=== PATIENT | male | born 1995 | race Caucasian/White ===

== ENCOUNTER 2018-06-18 10:15 | Day surgery (SDC) | payer OTHER ==
--- NOTE | 2018-06-18 10:45 | ANESTHESIA ---
Pre-Anesthesia VS, & Labs - Diagnosis R thumb fracture s/p repair - Procedure R thumb hardware removal Height 6 ft 1 in Weight (kg) 78.7 kg - NPO >8 hours Home Medications and Allergies Home Medications: Ambulatory Orders No Known Home Medications 06/17/18 No Known Home Medications 06/17/18 Allergies/Adverse Reactions: Allergies Allergy/AdvReac Type Severity Reaction Status Date / Time No Known Drug Allergies Allergy Verified 06/17/18 14:50 Anes History & Medical History - Medical History Cardiovascular: reports: None Pulmonary: reports: None Gastrointestinal: reports: None Urinary: reports: None Musculoskeletal: reports: Other (R thumb pinning) Endocrine/Autoimmune: reports: None Psychosocial: reports: Other (ADD ADHD) - Surgical History Orthopedic: Other Exam General: Alert, Oriented x3 Dental: WNL, Loose/Frag (chipped tooth at back lower R molar per pt) Mouth Openin Fingerbreadth Neck Mobility: Normal Mallampati classification: I Thyromental Distance: greater than 6 cm Respiratory: Lungs clear, Normal breath sounds Cardiovascular: Regular rate Neurological: Normal speech Mental/Cognitive Status: Alert/Oriented X3, Normal for patient Plan Anesthesia Type: General Consent for Procedure(s) Verified and Reviewed: Yes Code Status: Attempt Resuscitation ASA classification: 1-Healthy patient Is this case an emergency?: No
[2018-06-18] MEDS ORDERED: LACTATED RINGERS 1,000 ML IV ONE ×2 (10:55→13:41)
[2018-06-18] MEDS ORDERED: ceFAZolin 2 GM/50 ML 2 GM/50 ML BAG IV ONE (11:02)
[2018-06-18] MEDS ORDERED: WATER FOR INJECTION,STERILE 30 ML ONE (12:34)
[2018-06-18] MEDS ORDERED: BUPIVACAINE 0.25% PF 10 ML VIAL ONE (12:35)
[2018-06-18] MEDS ORDERED: BUPIVACAINE 0.25% PF 30 ML VIAL SUBQ ONE ×2 (12:43)
[2018-06-18] MEDS ORDERED: DEXAMETHASONE 4 MG/ML VIAL IVP ONE (12:48)
[2018-06-18] MEDS ORDERED: LIDOCAINE-MPF 2% 5 ML VIAL IM ONE (12:48)
[2018-06-18] MEDS ORDERED: MIDAZOLAM 2 MG/2 ML VIAL IVP ONE (12:48)
[2018-06-18] MEDS ORDERED: fentaNYL 100 MCG/2 ML VIAL IVP ONE (12:48)
[2018-06-18] MEDS ORDERED: PROPOFOL 200 MG/20 ML VIAL IVP ONE (12:48)
[2018-06-18] MEDS ORDERED: NALOXONE 0.4 MG/ML VIAL IVP ONE (12:48)
[2018-06-18] MEDS ORDERED: ONDANSETRON 4 MG/2 ML VIAL IVP ONE (12:48)
[2018-06-18] MEDS ORDERED: ACETAMINOPHEN 1,000 MG/100 ML 100 ML IV ONE (12:48)
[2018-06-18] MEDS ORDERED: oxyCODONE 5 MG TABLET PO PRN (13:38)
[2018-06-18] MEDS ORDERED: ONDANSETRON 4 MG/2 ML VIAL IVP PRN (13:38)
--- NOTE | 2018-06-18 13:41 | OPERATIVE REPORT ---
Operative Report - General Procedure Date: 06/18/18 Planned Procedure: Right thumb implant removal and extensor tendon tenolysis Pre-Op Diagnosis: Right thumb symptomatic implants and stiffness Procedure Performed: Right thumb implant removal Right thumb extensor tendon tenolysis Post Op Diagnosis: Same - Procedure Note Primary Surgeon: Maurilio Poole Estimated Blood Loss (mL): 1 Complications: None - Other Other Information/Narrative: Postoperative Protocol: Move thumb as much as possible. Dressing off in 5 days. No firm gripping or lifting for 2 weeks. Indication For Surgery: 22M who underwent ORIF of the right thumb P1 fracture on 08 October 2017. He has had an excellent recovery without significant complication. His motion improved with occupational therapy. He continues to have pain dorsally at the IP joint when he fully flexes and the implants were tender to the touch. He additionally had some stiffness and lacked some flexion. The risks, benefits, and alternatives were discussed. Risks include pain, bleeding, infection, damage to nearby structures, numbness, retained implants, stiffness, lack of symptom relief, need for further surgery, DVT, PE, stroke, and . Written consent was obtained. The patient was met in the preoperative holding on the day of the procedure. Operative extremity was signed. Consent was verified. They desire to proceed. They were brought to the operating room and surrendered to anesthesia. Once general anesthesia was obtained he was placed into the supine position. A well- padded forearm tourniquet was applied. They were prepped and draped in the standard fashion. A surgical timeout was held will be confirmed the patient procedure, identity, allergies, antibiotics, images laterality, and finger. All were in agreement we proceeded. A tourniquet was used to exsanguinate the limb and the tourniquet was elevated to 250mm Hg. Total tourniquet time was 54 minutes. The central portion of the prior incision was used and sharp dissection was brought down to the extensor tendon and it was released sharply from the surrounding tissues. The dissection was brought back to the extensor dexter over the MCP and this was left intact on both sides. I was able to see the plate on the ulnar aspect of the bone and I did not need to split the tendon again. I freed the scar tissue off the plate ulnarly and removed the proximal plate screws. I then freed the radial aspect of the tendon distally and removed the distal screws. I then removed the lag screws that were outside the plate. I then used sharp dissection to free the tendon from all scar tissue deep and superficial. Xrays were taken to confirm that all implants had been removed. Range of motion of the IP joint was 15 degrees of hyperextension to 70 degrees of flexion. The wound was irrigated copiously and closed with horizontal mattress sutures. A sterile dressing was applied. He was transferred to the recovery room in good condition.
[2018-06-18 16:05] VITALS: BP 112/72
== END 2018-06-18 10:16 | disposition home or self-care (01) ==
LOC: SDS 10:15
PROVIDERS: ATTEND Orthopaedic Surgery
PROC: 0LN70ZZ Release Right Hand Tendon, Open Approach (ICD-10-PCS; 2018-06-18)
PROC: 0RPW0JZ Removal of Synthetic Substitute from Right Finger Phalangeal Joint, Open Approach (ICD-10-PCS; principal; 2018-06-18 11:30)
DX: T84.84XA Pain due to internal orthopedic prosthetic devices, implants and grafts, initial encounter (principal)
CPT/HCPCS: 26320; 26445; A9270; J0131; J0690; J7120

== ENCOUNTER 2019-02-10 18:55 | Emergency (ER) | payer OTHER ==
[2019-02-10 19:01] VITALS: BP 122/72
--- NOTE | 2019-02-10 19:24 | ED Physician Documentation ---
PD HPI UPPER EXT INJURY - Stated complaint Stated Complaint: L WRIST INJ - Chief complaint Chief Complaint: Trauma Ext - History obtained from History obtained from: Patient - History of Present Illness Location: Left (23-year-old gentleman, active duty in the [employer]. He fell on outstretched wrist while playing flag football tonight and has mild pain of the distal radius on the left. No other injuries.) Review of Systems Constitutional: reports: Reviewed and negative Cardiac: reports: Reviewed and negative Respiratory: reports: Reviewed and negative PD PAST MEDICAL HISTORY - Past Medical History Cardiovascular: None Respiratory: None Endocrine/Autoimmune: None GI: None : None HEENT: None Psych: ADD/ADHD Musculoskeletal: Other - Past Surgical History Ortho: Other - Present Medications Home Medications: Ambulatory Orders Medication Instructions Recorded Confirmed No Known Home Medications 06/17/18 06/17/18 - Allergies Allergies/Adverse Reactions: Allergies Allergy/AdvReac Type Severity Reaction Status Date / Time No Known Drug Allergies Allergy Verified 02/10/19 18:58 - Social History Does the pt smoke?: No Smoking Status: Never smoker Does the pt drink ETOH?: Yes Does the pt have substance abuse?: No - Immunizations Immunizations are current?: Yes PD ED PE NORMAL - Vitals Vital signs reviewed: Yes - General General: Alert and oriented X 3, No acute distress - Extremities Extremities: Other (Tenderness and swelling over the left distal radius dorsally, limited range of motion in flexion and extension due to pain. No snuffbox tenderness. Normal neurovascular function in the hand.) - Neuro Neuro: Alert and oriented X 3, Normal speech Results - Vitals Vitals: Vital Signs - 24 hr 02/10/19 18:58 Temperature 36.8 C Heart Rate 82 Respiratory 16 Rate Blood Pressure 122/72 O2 Saturation 98 Oxygen O2 Source Room air - Rads (name of study) 4 views of the left wrist Radiology: EMP read contemporaneously (Hairline fracture, nondisplaced through the left distal radius) Procedures - Splint (location) LUE Splint applied by: Tech Type of splint: Fiberglass, Short arm, Sugar tong Other: Patient tolerated well, No complications, Neurovascular intact Departure - Departure Disposition: 01 Home, Self Care Clinical Impression: Fracture of left distal radius Qualifiers: Encounter type: initial encounter Fracture type: closed Fracture morphology: other extra-articular Qualified Code(s): J11.546U - Other extraarticular fracture of lower end of left radius, initial encounter for closed fracture Condition: Good Record reviewed to determine appropriate education?: Yes Instructions: ED Fx Forearm Radius Ulna No Redu Requ Comments: Keep the splint on and dry, elevated. Tylenol or ibuprofen as needed for pain. Take the copy of the x-ray with you and [place] Forms: Activity restrictions
--- NOTE | 2019-02-10 19:40 | XRAY Report ---
Reason: wrist inj Procedure Date: 02/10/2019 Accession Number: [id number] / [id number] Procedure: XR - Wrist 4 View LT CPT Code: FULL RESULT: EXAM: LEFT WRIST RADIOGRAPHY EXAM DATE: 02/10/2019 07:22 PM. CLINICAL HISTORY: Left wrist pain. COMPARISON: None. TECHNIQUE: 4 views. FINDINGS: Bones: Impacted nondisplaced distal radial metaphyseal fracture. Remainder bones intact. Joints: Normal. No subluxations. Soft Tissues: Normal. No soft tissue swelling. IMPRESSION: Nondisplaced distal radial metaphyseal fracture. RADIA
== END 2019-02-10 19:42 | disposition home or self-care (01) ==
LOC: ED 18:55
DX: S52.552A Other extraarticular fracture of lower end of left radius, initial encounter for closed fracture (principal); W18.30XA Fall on same level, unspecified, initial encounter; Y93.62 Activity, american flag or touch football
CPT/HCPCS: 29125; 99282; 99283

== ENCOUNTER 2020-12-24 12:40 | Emergency (ER) | payer OTHER ==
--- NOTE | 2020-12-24 13:11 | ED Physician Documentation ---
PD HPI UPPER EXT INJURY - Stated complaint Stated Complaint: LEFT SHOULDER INJURY - Chief complaint Chief Complaint: Ext Problem - History obtained from History obtained from: Patient - Additonal information Additional information: Sliding into a base last night, arms over the head. He felt a pulling sensation now has moderate pain that is keeping him up at night across the posterior part of the superior left shoulder radiating to the neck and down to the bicep. He is right-handed. Pain is on the left. Review of Systems Constitutional: reports: Reviewed and negative Eyes: reports: Reviewed and negative Ears: reports: Reviewed and negative Nose: reports: Reviewed and negative PD PAST MEDICAL HISTORY - Past Medical History Cardiovascular: None Respiratory: None Endocrine/Autoimmune: None GI: None : None HEENT: None Psych: ADD/ADHD Musculoskeletal: Other - Past Surgical History Ortho: Other - Present Medications Home Medications: Ambulatory Orders Medication Instructions Recorded Confirmed HYDROcod/ACETAM 5/325 [Davin 5/325] 1 - 2 tab PO Q6H PRN #20 tablet 12/24/20 - Allergies Allergies/Adverse Reactions: Allergies Allergy/AdvReac Type Severity Reaction Status Date / Time No Known Drug Allergies Allergy Verified 12/24/20 12:50 - Social History Does the pt smoke?: No Smoking Status: Never smoker Does the pt drink ETOH?: Yes Does the pt have substance abuse?: No - Immunizations Immunizations are current?: Yes PD ED PE NORMAL - Vitals Vital signs reviewed: Yes - General General: Alert and oriented X 3, No acute distress - Neck Neck: Supple, no meningeal sign, No bony TTP - Extremities Extremities: Other (No specific tenderness about the left shoulder, no deformity. He is unable to abduct more than about 15 degrees due to pain. Painless external rotation but internal rotation is painful.) - Neuro Neuro: Alert and oriented X 3, Normal speech Results - Vitals Vitals: Vital Signs - 24 hr 12/24/20 12/24/20 12:46 14:44 Temperature 36.4 C L 36.9 C Heart Rate 78 77 Respiratory 15 16 Rate Blood Pressure 132/80 H 148/79 H O2 Saturation 100 99 Oxygen O2 Source Room air - Rads (name of study) L shoulder XR Radiology: EMP read contemporaneously (nondisplaced chip frax humeral head) PD MEDICAL DECISION MAKING - ED course ED course: 25-year-old gentleman presents with a nondisplaced fracture of the humeral head. He is placed in a sling for comfort and given a copy of his x-rays to aid orthopedic follow-up. Departure - Departure Disposition: 01 Home, Self Care Clinical Impression: Fracture of humeral head, left, closed Qualifiers: Encounter type: initial encounter Qualified Code(s): S42.292A - Other displaced fracture of upper end of left humerus, initial encounter for closed fracture Condition: Good Record reviewed to determine appropriate education?: Yes Instructions: Humerus Fx Prescriptions: HYDROcod/ACETAM 5/325 [Davin 5/325] 1 - 2 tab PO Q6H PRN #20 tablet PRN Reason: Pain Comments: Prescription was sent electronically to [facility] in [place]. Keep the sling on and follow-up with one of the orthopedic surgeons on [facility], call the [facility] hospital tomorrow. Return for new or worsening symptoms. I am prescribing a short course of narcotic pain medication for you. These are potentially dangerous and addictive medications that should be used carefully. These medications may constipate you. Take an [id number] stool softener (docusate) twice daily with plenty of water while taking these medications. If you go 24 hours without a bowel movement, take [id number]-[id number] miralax, per package instructions. Do not drink or drive while taking these medications. If you received narcotic or sedating medications while in the emergency department, do not drive for 24 hours. Store this medication in a safe, secure place and out of reach of children. It is a violation of federal law to give or sell this medication to another person or to use in a manner other than prescribed. The ED will not refill narcotic prescriptions, including prescriptions lost or stolen. To dispose of unwanted medications: 1. [facility] at [address] in [place] has a medication drop box. They accept prescription medications (in pill form) Friday through Friday 9:00 a.m. to 5:00 p.m. 2. [facility] [employer] [facility] accepts prescription medications (in pill form only) for disposal year round. Call for more information. 3. Contact the [facility] for the next [facility] sponsored prescription drug collection event. , [phone], or [phone]; Note that many narcotic pain relievers also contain Tylenol/acetaminophen. Please ensure that your total dose of acetaminophen from all sources does not exceed 3 g (3000 mg) per day. Forms: Activity restrictions Discharge Date/Time: 12/24/20 14:46
--- NOTE | 2020-12-24 13:57 | XRAY Report ---
PROCEDURE: Shoulder 3 View LT INDICATIONS: shoulder injury TECHNIQUE: 3 views of the shoulder were acquired. COMPARISON: None. FINDINGS: Bones: There is a mildly displaced fracture seen involving the lateral humeral head. No additional f ractures can be seen. No dislocation can be seen. No suspicious bony lesions. Visualized ribs appear intact. Soft tissues: No suspicious soft tissue calcifications. The visualized pulmonary apex is unremarka ble. IMPRESSION: Mildly displaced fracture seen involving the lateral humeral head. Reviewed by: Nick Shukla MD on 12/24/2020 12:56 PM AKJASE Approved by: Nick Shukla MD on 12/24/2020 12:56 PM TINY Station ID: [id number]
[2020-12-24 14:46] VITALS: BP 148/79
== END 2020-12-24 14:46 | disposition home or self-care (01) ==
LOC: ED 12:40
DX: S42.292A Other displaced fracture of upper end of left humerus, initial encounter for closed fracture (principal); X50.0XXA Overexertion from strenuous movement or load, initial encounter; Y93.64 Activity, baseball; Y92.320 Baseball field as the place of occurrence of the external cause; F90.9 Attention-deficit hyperactivity disorder, unspecified type
CPT/HCPCS: 99283

== ENCOUNTER 2021-02-14 07:00 | Outpatient (CLI) | payer OTHER | END 2021-02-14 23:59 | disposition home or self-care (01) | LOC: LAB 07:00 | PROVIDERS: ATTEND Family Medicine | DX: R05.9 Cough, unspecified (principal); Z20.822 Contact with and (suspected) exposure to COVID-19 ==